=== PATIENT | male | born 1940 | race Caucasian/White ===

== ENCOUNTER 2020-05-11 15:58 | Inpatient (IN) | payer OTHER ==
[~2020-05-11] VITALS: Ht 188 cm; Wt 65.3 kg
--- NOTE | 2020-05-11 16:04 | NUR ---
JOSIANE, FROM [facility] FOR FLU LIKE SYMPTOMS, RUNNY NOSE, CONGESTION. TO ER BED 8, ON ISOLATION AND PLACED ON SURGICAL MASK. HOOKED TO BP CUFF AND POX, CHANGED TO HOSP GOWN, WARM BLANKET PROVIDED, PATIENT AAO x 2, BREATHING EVEN AND UNLABORED. NAD NOTED. DR MCDONNELL AT BEDSIDE FOR EVAL
--- NOTE | 2020-05-11 17:10 | NUR ---
COVID RAPID AND PCR SWAB DONE AND SENT TO LAB
[2020-05-11] MEDS ORDERED: METO-357 PO (17:12)
[2020-05-11] MEDS ORDERED: ATOR80TA PO (17:12)
[2020-05-11] MEDS ORDERED: FURO-145 PO (17:12)
[2020-05-11] MEDS ORDERED: POTA20TA83 PO (17:12)
[2020-05-11] MEDS ORDERED: LISI-603 PO (17:12)
[2020-05-11 17:23] LABS: BASOPHILS % (AUTO) 0.6 % (0.0-2.0); EOSINOPHILS % (AUTO) 0.1 % (0.0-6.0); HEMATOCRIT 40 % (39-51); HEMOGLOBIN 13.6 g/dL (13.5-17.5); LYMPHOCYTES # (AUTO) 0.4 /CMM (0.8-4.8); LYMPHOCYTES % (AUTO) 8.4 % (20.0-44.0); MEAN CORPUSCULAR HGB CONC 34 g/dl (31.0-36.0); MEAN CORPUSCULAR VOLUME 96 fL (80-96); MONOCYTES # (AUTO) 0.5 /CMM (0.1-1.30); MONOCYTES % (AUTO) 9.4 % (2.0-12.0); NEUTROPHILS # (AUTO) 4.3 /CMM (1.8-8.9); NEUTROPHILS % (AUTO) 81.5 % (43.0-81.0); PLATELET COUNT (AUTO) 109 /CMM (150-450); RED BLOOD CELL COUNT(AUTO) 4.15 MIL/uL (4.5-6.0); WHITE BLOOD COUNT (AUTO) 5.3 K/uL (4.3-11.0)
[2020-05-11 17:34] LABS: CALCIUM, SERUM 8.5 mg/dL (8.5-10.1); CARBON DIOXIDE 26 mmol/L (21-32); CHLORIDE 105 mmol/L (98-107); CREATININE 1.1 mg/dL (0.6-1.3); GLUCOSE 129 mg/dL (74-106); POTASSIUM 3.9 mmol/L (3.5-5.1); SODIUM SERUM 141 mmol/L (136-145); UREA NITROGEN, BLOOD 22 mg/dL (7-18)
[2020-05-11 17:46] LABS: ALANINE AMINOTRANSFERASE 32 U/L (12-78); ALBUMIN 3.7 g/dL (3.4-5.0); ALKALINE PHOSPHATASE 102 U/L (46-116); ASPARTATE AMINOTRANSFERASE 39 U/L (15-37); B-TYPE NATRIURETIC PEPTIDE 551 PG/ML (0-125); BILIRUBIN,TOTAL 0.7 mg/dL (0.2-1.0); TOTAL PROTEIN, SERUM 7.5 g/dL (6.4-8.2)
--- NOTE | 2020-05-11 17:53 | NUR ---
PATIENT CANNOT PROVIDE URINE SAMPLE AT THIS TIME, OFFERED STRAIGHT CATHETER BUT REFUSED. MADEMD AWARE
[2020-05-11 18:43] LABS: CREATINE KINASE, TOTAL 66 U/L (39-308); FERRITIN 379 ng/mL (8-388)
[2020-05-11 18:46] LABS: C-REACTIVE PROTEIN 2.5 mg/dL (0.0-0.9)
[2020-05-11 18:56] LABS: D-DIMER 1.22 mg/L(FEU (0.17-0.50)
--- NOTE | 2020-05-11 19:50 | NUR ---
STAR SHELDON SPOKE TO DR. QUILES REGARDING PT.
--- NOTE | 2020-05-11 21:30 | NUR ---
PT IN BED RESTING COMFORTABLY. VSS. PT PROVIDING A URINE SAMPLE.
--- NOTE | 2020-05-11 21:32 | NUR ---
PT ON 2L NC.
--- NOTE | 2020-05-11 22:15 | NUR ---
PAGED DR QUILES
--- NOTE | 2020-05-11 23:36 | NUR ---
REPROT GIVEN TO CHARGE NURSE.
[2020-05-12] VITALS: BP 158/72
[2020-05-12 01:30] VITALS: BP 158/72
--- NOTE | 2020-05-12 01:30 | NUR ---
MS TWISTING OPERATOR NOTES RECEIVED FROM ER PER ELIZABETH UNDER THE SERVICE OF DR QUILES,CHIEF COMPLAINTS OF FLU LIKE SYMPTOMS,RUNNY NOSE,CONGESTION FOR FEW DAYS.A RESIDENT OF [facility],ALERT,ORIENTED X203,ABLE TO STAE HIS NAME AND BIRTHDAY,NO SOB,O2 2L/NC TO KEEP O2 SAT ABOVE 90%.WITH SALINE LOCK RIGHT WRIST AND RFA,BOTH #20 INTACT AND PATENT.NO SKIN ISSUES,BEDREST ORDERED.INCONTINENT OF URINE.CALL LIGHT IN REACH,NEEDS ANTICIPATED. Addendum: 05/12/20 at 0515 by ALICIA BHAKTA RN A/O X2-3
--- NOTE | 2020-05-12 01:33 | NUR ---
PT TRANSFERRED TO ROOM PER ACLS PROTOCOL
[2020-05-12] MEDS ORDERED: CEFTRIAXONE 1 G VIAL IV SCH (02:00)
[2020-05-12] MEDS ORDERED: ONDANSETRON 4 MG TAB.RAPDIS PO PRN (02:00)
[2020-05-12] MEDS ORDERED: ACETAMINOPHEN 325 MG TABLET PO PRN (02:00)
--- NOTE | 2020-05-12 02:52 | NUR ---
MS RN NOTES STARTED ON ROCEPHIN 1GM IV ORDERED.
[2020-05-12 04:00] VITALS: BP 133/70
--- NOTE | 2020-05-12 06:54 | NUR ---
MS RN NOTES SLEPT WELL,CALM,NO FEVER,HAD BM X2.INCONTINENT OF B/B.IN NO ACUTE DISTRESS.WILL CONTINUE WITH PLAN OF CARE
[2020-05-12 07:17] LABS: CREATININE 0.9 mg/dL (0.6-1.3); MAGNESIUM 2.3 mg/dL (1.8-2.4); POTASSIUM 3.7 mmol/L (3.5-5.1)
[2020-05-12 07:23] LABS: BASOPHILS % (AUTO) 0.4 % (0.0-2.0); EOSINOPHILS % (AUTO) 0.1 % (0.0-6.0); HEMATOCRIT 44 % (39-51); HEMOGLOBIN 14.6 g/dL (13.5-17.5); LYMPHOCYTES % (AUTO) 17.4 % (20.0-44.0); MEAN CORPUSCULAR HGB CONC 34 g/dl (31.0-36.0); MEAN CORPUSCULAR VOLUME 96 fL (80-96); MONOCYTES # (AUTO) 0.7 /CMM (0.1-1.30); MONOCYTES % (AUTO) 12.4 % (2.0-12.0); NEUTROPHILS # (AUTO) 3.9 /CMM (1.8-8.9); NEUTROPHILS % (AUTO) 69.7 % (43.0-81.0); PLATELET COUNT (AUTO) 113 /CMM (150-450); RED BLOOD CELL COUNT(AUTO) 4.54 MIL/uL (4.5-6.0); WHITE BLOOD COUNT (AUTO) 5.6 K/uL (4.3-11.0)
--- NOTE | 2020-05-12 07:30 | NUR ---
MS/RN OPENING NOTE Received patient resting in bed, A&O X 2-3. No complaints of pain/discomfort at this time. Breathing even and non-labored on RA, no respiratory distress noted. No cardiac distress noted. IV access noted on RFA and R wrist #20 g, patent and intact, and flushing well. Sensation from all peripheral extremities intact. Side rails x 2 up, bed locked to its lowest position, call light in hand. Will continue with current medical management.
[2020-05-12] MEDS: ENOXAPARIN SODIUM 40 MG/0.4 ML DISP.SYRIN SQ SCH ×2 (09:00→09:09)
[2020-05-12] MEDS: AZITHROMYCIN 500 MG in IV D5W 250 ML IV SCH (09:02)
[2020-05-12] MEDS: POTASSIUM CHLORIDE 20 MEQ TAB.PRT.SR PO SCH (10:32)
[2020-05-12] MEDS: FUROSEMIDE 20 MG TABLET PO SCH (10:32)
[2020-05-12] MEDS: LISINOPRIL (20MG) 20 MG TABLET PO SCH (10:33)
[2020-05-12] MEDS: METOPROLOL SUCCINATE 50 MG TAB.SR.24H PO SCH (10:33)
--- NOTE | 2020-05-12 18:29 | NUR ---
Patient is a resident of [facility] [phone]. He has hx of dementia, He requires assistance with adl's.Has adequate DME,no homehealth reported. Attempted to contact facility but no answer and voicemail is full. Per MD - will need SNF placement on discharge due to the COVID-19 outbreak at the [facility]. Left message to next of kin Teodora [phone] to discuss dc planning . Addendum: 05/12/20 at 1832 by MARKO LUCAS RN Amended: Links added.
--- NOTE | 2020-05-12 19:30 | NUR ---
MS RN OPENING NOTE PATIENT ON ISOLATION FOR COVID. PATIENT IN BED. A/OX2-3. TOLERATING ROOM AIR. AT THIS TIME. RESPIRATIONS ARE EVEN AND UNLABORED. NO S/S SOB NOTED. NO C/O OR S/S PAIN NOTED. IN NO APPARENT DISTRESS. IV ACCESS IN RFA AND RIGHT WRIST#20 PATENT AND SALINE LOCKED. BED IS LOW AND LOCKED, HOB ELEVATED IN HIGH FOWLERS, SIDE RIALS UP X2, CALL LIGHT WITHIN REACH. WILL CONTINUE TO MONITOR.
--- NOTE | 2020-05-12 19:30 | NUR ---
MS/RN CLOSING NOTE Patient resting in bed, A&O X 2-3. All needs met and attended to. No complaints of pain/discomfort at this time. Breathing even and non-labored on RA, no respiratory distress noted. No cardiac distress noted. IV access noted on RFA and R wrist #20 g, patent and intact, and flushing well. Sensation from all peripheral extremities intact. Fall precautions maintained. Will endorse to pressurizer nurse.
[2020-05-12 20:00] VITALS: BP_SYST 161; BP_SYST 167; BP_DIAS 82; BP_DIAS 90
--- NOTE | 2020-05-12 20:50 | NUR ---
ms rn note left message for dr. wright that patient bp is 167/82 hr 60. awaiting call. will continue to monitor.
--- NOTE | 2020-05-12 21:15 | NUR ---
ms rn note attempted to reach dr. fong once again for bp. bp is 168/89 hr 62. awaiting call. will continue to monitor.
--- NOTE | 2020-05-12 21:23 | NUR ---
SNF referral faxed to Vonda at [facility] conv [phone]. Case will be review for financial and clinicals clearance. Addendum: 05/12/20 at 2124 by MARKO LUCAS RN Amended: Links added.
--- NOTE | 2020-05-12 21:25 | NUR ---
SNF referral faxed to Vonda at [facility] conv [phone]. Case will be reviewed for financial and clinicals clearance. Addendum: 05/12/20 at 2125 by MARKO LUCAS RN Amended: Links added.
--- NOTE | 2020-05-12 22:30 | NUR ---
ms rn note called dr. wright office, dr. wright is not refrigeration service inspector at this time. refer to epic dr. notified dr. velasco that bp is 168/ 89 hr 62. received telephone order for labetalol 10mg iv q4hr prn for sbp greater than 170. clarified if this is an intervention for this time. stated no, please use order when appropriate, if not then continue to monitor. order read back, noted and carried out.
[2020-05-12] MEDS ORDERED: LABETALOL 20 MG/4 ML VIAL IV PRN (23:00)
[2020-05-13] VITALS: BP_SYST 152; BP_SYST 161; BP_DIAS 78; BP_DIAS 90
[2020-05-13] MEDS: CEFTRIAXONE 1 G in IV D5W 50 ML IV SCH (01:29)
[2020-05-13 04:00] VITALS: BP 148/75
--- NOTE | 2020-05-13 07:06 | NUR ---
WEAPONS AND TACTICS INSTRUCTOR OPENING NOTES RECEIVED PT AWAKE IN BED AT THIS TIME. PT AOX2-3. PT ABLE TO VERBALIZE NEEDS. NO SOB NOTED, NO S/S OF ANY ACUTE DISTRESS NOTED. NO C/O PAIN AT THIS TIME. RESPIRATIONS ARE EVEN AND UNLABORED. PT STABLE ON RA. IV ACCESS NOTED IN RFA G#20, INTACT, PATENT AND FLUSHING WELL. ASPIRATION AND SAFETY PRECAUTION IN PLACE AND MAINTAINED AT ALL TIMES. BED IN LOWEST LOCKED POSITION, HOB ELEVATED, SIDE RAILS UP X 2, CALL LIGHT AND TABLE WITHIN REACH. WILL CONTINUE TO MONITOR
--- NOTE | 2020-05-13 07:49 | NUR ---
MS RN CLOSING NOTE COVID ISOLATION. PATIENT RESTING IN BED. A/OX2-3. REMAINS TOLERATING ROOM AIR. NO RESP DISTRESS NOTED. NO C/O OR S/S PAIN NOTED T/O SHIFT. NO DISTRESS. IV ACCESS MAINTAINED IN RFA AND RIGHT WRIST#20. BED REMAINS LOW AND LOCKED, HOB ELEVATED IN HIGH FOWLERS, SIDE RIALS UP X2, CALL LIGHT WITHIN REACH. WILL ENDORSE TO NEXT SHIFT.
[2020-05-13 08:00] VITALS: BP 142/87
[2020-05-13] MEDS ORDERED: METOPROLOL SUCCINATE 50 MG TAB.SR.24H PO SCH (09:00)
[2020-05-13] MEDS ORDERED: LISINOPRIL (20MG) 20 MG TABLET PO SCH (09:00)
[2020-05-13] MEDS ORDERED: FUROSEMIDE 20 MG TABLET PO SCH (09:00)
[2020-05-13] MEDS ORDERED: POTASSIUM CHLORIDE 20 MEQ TAB.PRT.SR PO SCH (09:00)
[2020-05-13] MEDS: AZITHROMYCIN 500 MG in IV D5W 250 ML IV SCH (09:24)
[2020-05-13] MEDS: LISINOPRIL (20MG) 20 MG TABLET PO SCH (09:25)
[2020-05-13] MEDS: POTASSIUM CHLORIDE 20 MEQ TAB.PRT.SR PO SCH (09:25)
[2020-05-13] MEDS: METOPROLOL SUCCINATE 50 MG TAB.SR.24H PO SCH (09:25)
[2020-05-13] MEDS: FUROSEMIDE 20 MG TABLET PO SCH (09:25)
[2020-05-13] MEDS: ENOXAPARIN SODIUM 40 MG/0.4 ML DISP.SYRIN SQ SCH (09:27)
--- NOTE | 2020-05-13 19:03 | NUR ---
TURN LASTER CLOSING NOTES PT RESTING IN BED AT THIS TIME. PT REMAINED STABLE THROUGHOUT SHIFT. ALL CARE, NEED, MEDICATIONS AND TREATMENT ADMINISTERED ANTICIPATED PER ORDER. PT KEPT CLEAN AND DRY. ASPIRATION AND SAFETY PRECAUTION IN PLACE AND MAINTAINED AT ALL TIMES. BED IN LOWEST LOCKED POSITION, HOB ELEVATED, SIDE RAILS UP X 2, CALL LIGHT AND TABLE WITHIN REACH. WILL ENDORSE TO SAMPLE SELECTOR NURSE FOR NAMITA
--- NOTE | 2020-05-13 19:30 | NUR ---
MS RN NOTES RECEIVED LAYING COMFORTABLY ON BED,BREATHING EASY,NO SOB,ISOLATION FOR COVID +ON RAPID TEST AWAITING PCR TEST RESULT.SALINE LOCK X2 ON RIGHT ARM INTACT AND PATENT.CALL LIGHT IN REACH NEEDS ANTICIPATED.
[2020-05-13 20:00] VITALS: BP 146/82
[2020-05-14] MEDS: CEFTRIAXONE 1 G in IV D5W 50 ML IV SCH (01:47)
--- NOTE | 2020-05-14 06:40 | NUR ---
MS RN NOTES NO SIGNIFICANT CHANGE IN STATUS,DUE IV ABX ADMINISTERED.IN NO ACUTE DISTRESS.
--- NOTE | 2020-05-14 07:20 | NUR ---
RN NOTES ALERT AND ORIENTED X2-3. RECEIVED ON ROOM AIR WITH SPO2 93%. RT FA # 20 AND R WRIST # 20 SL, INTACT AND PATENT. BED LOCKED IN LOW POSITION, LOCKED. BED SIDERAILS UP.FREQUENT VISUAL CHECK DONE.
[2020-05-14 08:00] VITALS: BP 103/60
[2020-05-14] MEDS: POTASSIUM CHLORIDE 20 MEQ TAB.PRT.SR PO SCH (09:37)
[2020-05-14] MEDS: FUROSEMIDE 20 MG TABLET PO SCH (09:40)
[2020-05-14] MEDS: METOPROLOL SUCCINATE 50 MG TAB.SR.24H PO SCH (09:40)
[2020-05-14] MEDS: LISINOPRIL (20MG) 20 MG TABLET PO SCH (09:40)
[2020-05-14] MEDS: ENOXAPARIN SODIUM 40 MG/0.4 ML DISP.SYRIN SQ SCH (09:42)
[2020-05-14] MEDS: AZITHROMYCIN 500 MG in IV D5W 250 ML IV SCH (09:52)
[2020-05-14 16:00] VITALS: BP 148/83
--- NOTE | 2020-05-14 19:35 | NUR ---
RN NOTES PATIENT RESTING IN BED COMFORTABLY, ALERT AND ORIENTED X2-3. REMAIN ON ROOM AIR WITHOUT S/S OF RESPIRATORY COMPLICATIONS. RT FA # 20 AND R WRIST # 20 SL, INTACT AND PATENT. BED LOCKED IN LOW POSITION, LOCKED. BED SIDERAILS UP. IN NO APPARENT DISTRESS.
--- NOTE | 2020-05-14 19:35 | NUR ---
RN NOTES RECEIVED PATIENT RESTING IN BED COMFORTABLY, ALERT AND ORIENTED X2-3. REMAIN ON ROOM AIR WITHOUT S/S OF RESPIRATORY COMPLICATIONS. RT FA # 20 AND R WRIST # 20 SL, INTACT AND PATENT. BED LOCKED IN LOW POSITION, LOCKED. BED SIDERAILS UP. IN NO APPARENT DISTRESS.
--- NOTE | 2020-05-14 19:50 | NUR ---
MS RN OPENING NOTES RECEIVED PATIENT RESTING IN BED COMFORTABLY; A/OX2-3, TOLERATING ROOM AIR WELL; NO SOB NOTED; NO APPARENT DISTRESS NOTED; BREATHING EVEN AND UNLABORED; R FA # 20 AND R WRIST # 20, INTACT AND PATENT; ISOLATION PRECAUTIONS MAINTAINED; SAFETY PRECAUTIONS IMPLEMENTED; BED LOCKED IN LOW POSITION; SIDE RAILSX2; CALL LIGHT WITHIN REACH; WILL CONT PLAN OF CARE
[2020-05-14 20:00] VITALS: BP 140/78
[2020-05-15] MEDS: CEFTRIAXONE 1 G in IV D5W 50 ML IV SCH (01:05)
--- NOTE | 2020-05-15 07:02 | NUR ---
MS RN CLOSING NOTES PATIENT RESTING IN BED COMFORTABLY; A/OX2-3, BREATHING EVEN AND UNLABORED; NO SOB NOTED; TOLERATING ROOM AIR WELL; NO APPARENT DISTRESS NOTED AT THIS TIME; R FA #20, R WRIST #20 INTACT AND PATENT, TOLERATING IVF WELL; ISOLATION PRECAUTIONS MAINTAINED; ALL NEEDS RENDERED; SAFETY PRECAUTIONS IMPLEMENTED; WILL ENDORSE NAMITA TO ONCOMING SHIFT
--- NOTE | 2020-05-15 07:50 | NUR ---
MS RN OPENING NOTES RECEIVED PATIENT ON BED COMFORTABLY; A/OX2-3, TOLERATING ROOM AIR WELL; NO SOB NOTED; NO APPARENT DISTRESS NOTED; BREATHING EVEN AND UNLABORED; R FA # 20 AND R WRIST # 20, INTACT AND PATENT; ISOLATION PRECAUTIONS MAINTAINED; SAFETY PRECAUTIONS IMPLEMENTED; BED LOCKED IN LOW POSITION; SIDE RAILSX2; CALL LIGHT WITHIN REACH; WILL CONTINUE TO MONITOR.
[2020-05-15 08:00] VITALS: BP 156/86
[2020-05-15 08:21] LABS: BASOPHILS % (AUTO) 0.3 % (0.0-2.0); HEMATOCRIT 43 % (39-51); HEMOGLOBIN 14.9 g/dL (13.5-17.5); LYMPHOCYTES # (AUTO) 0.4 /CMM (0.8-4.8); LYMPHOCYTES % (AUTO) 6.6 % (20.0-44.0); MEAN CORPUSCULAR HGB CONC 35 g/dl (31.0-36.0); MEAN CORPUSCULAR VOLUME 92 fL (80-96); MONOCYTES # (AUTO) 0.6 /CMM (0.1-1.30); MONOCYTES % (AUTO) 10.1 % (2.0-12.0); PLATELET COUNT (AUTO) 107 /CMM (150-450); RED BLOOD CELL COUNT(AUTO) 4.66 MIL/uL (4.5-6.0)
[2020-05-15 08:40] LABS: CALCIUM, SERUM 8.8 mg/dL (8.5-10.1); CREATININE 0.9 mg/dL (0.6-1.3); POTASSIUM 3.6 mmol/L (3.5-5.1)
[2020-05-15] MEDS ORDERED: AZITHROMYCIN 250 MG TABLET PO SCH (09:00)
[2020-05-15] MEDS: ENOXAPARIN SODIUM 40 MG/0.4 ML DISP.SYRIN SQ SCH (10:06)
[2020-05-15] MEDS: FUROSEMIDE 20 MG TABLET PO SCH (10:06)
[2020-05-15] MEDS: LISINOPRIL (20MG) 20 MG TABLET PO SCH (10:07)
[2020-05-15] MEDS: METOPROLOL SUCCINATE 50 MG TAB.SR.24H PO SCH (10:07)
[2020-05-15] MEDS: POTASSIUM CHLORIDE 20 MEQ TAB.PRT.SR PO SCH (10:07)
[2020-05-15] MEDS ORDERED: CEFT1VIA15 IV (12:34)
[2020-05-15 16:00] VITALS: BP 153/83
--- NOTE | 2020-05-15 19:33 | NUR ---
MS RN CLOSING NOTES PATIENT IS ON BED COMFORTABLY; A/OX2-3, BREATHING EVEN AND UNLABORED; NO SOB NOTED; TOLERATING ROOM AIR WELL; NO APPARENT DISTRESS NOTED AT THIS TIME; R FA #20, R WRIST #20 INTACT AND PATENT, TOLERATING IVF WELL; ISOLATION PRECAUTIONS MAINTAINED; ALL NEEDS RENDERED; SAFETY PRECAUTIONS IMPLEMENTED; PATIENT IS FOR DISCHARGED TODAY. WILL ENDORSE NAMITA TO ONCOMING SHIFT
--- NOTE | 2020-05-15 19:45 | NUR ---
MS RN NOTE: PATIENT RESTING IN BED, NO ACUTE DISTRESS NOTED. BREATHING EVEN AND UNLABORED, NO SOB NOTED. IV TO RFA AND RIGHT WRIST IN PLACE. PATIENT TO BE DISCHARGED TONIGHT, DISCHARGE PAPERWORK COMPLETED BY DAY NURSE AND REPORT ALREADY GIVEN TO FACILITY. AWAITING FOR VARNISH INSPECTOR. ISOLATION PRECAUTIONS OBSERVED. BED LOCKED AND IN LOWEST POSITION, CALL LIGHT IN REACH. WILL CONTINUE TO MONITOR.
--- NOTE | 2020-05-15 22:00 | NUR ---
MS RN NOTE: CALLED [facility] TO VERIFY IF PATIENT WILL BE PICKED UP, AMBULANCE DELAYED WITH ANOTHER PATIENT, POSSIBLE FARM ADVISOR AROUND 2300. WILL CONTINUE TO MONITOR.
--- NOTE | 2020-05-15 23:15 | NUR ---
MS RN NOTE: PATIENT PICKED UP TO BE DISCHARGED TO [facility]. REPORT GIVEN TO EMT, DISCHARGE PAPERWORK GIVEN. IV TO RFA AND RIGHT WRIST IN PLACE, PATIENT TO CONTINUE WITH IV ANTIBIOTIC AT FACILITY PER MD ORDER. PATIENT BELONGINGS WITH EMT. PATIENT OFF FLOOR IN STABLE CONDITION. CALLED FACILITY AND INFORMED THAT PATIENT ON THE WAY AND JUST PICKED UP.
== END 2020-05-15 23:05 | DRG 177 ==
LOC: ER 16:03 → TELE2 23:05 → MEDSG2 05-13 01:29
PROVIDERS: ADMIT Legal Medicine; ATTEND Legal Medicine
DX: U07.1 COVID-19 (principal); J12.89 Other viral pneumonia; G93.41 Metabolic encephalopathy; J44.0 Chronic obstructive pulmonary disease with (acute) lower respiratory infection; F03.90 Unspecified dementia, unspecified severity, without behavioral disturbance, psychotic disturbance, mood disturbance, and anxiety; I10 Essential (primary) hypertension; R53.1 Weakness; K21.9 Gastro-esophageal reflux disease without esophagitis
CPT/HCPCS: 36415; 71045-TC; 80048-TC; 80053-TC; 82550-TC; 82728-TC; 83605-TC; 83615-TC; 83735-TC; 83880; 84484-TC; 85025-TC; 85378-TC; 85730-TC; 86140-TC; 87040-TC; 87081-TC; C9803; G0378; J0456; J0696; J1650; J7050; J7060; U0003